=== PATIENT | male | born 1990 | race African-American/Black ===

== ENCOUNTER 2017-02-28 17:26 | Emergency (ER) | payer BC ==
--- NOTE | 2017-02-28 18:08 | ED.PDOC ---
History of Present Illness - General Time Seen by Provider: 02/28/17 17:52 Source: patient, family Exam Limitations: no limitations - History of Present Illness Initial Comments: the patient presents with a multitude of progressive symptoms. The patient has had intermittent bloody stools for the last year. He has had bilateral flank pain for the last month. He has been breaking out in sweatsintermittently for the last few months. He is feeling tingling in his legs but no loss of sensation or muscle strength. Mild stomach cramping. He is having symmetrical point pain at his elbows and his knees. he thinks he has lost 5 pounds. He has not found any ticks on himself. No significant family history of genetic disorders. No rashes. No oral lesions. No family history of prostate or testicular cancer though the patient has had significant urinary hesitancy for quite a while. No hair loss. No palpitations. No syncope or near syncope. No focal neurological changes otherwise. Timing/Duration: getting worse, changing over time Severity: moderate Improving Factors: nothing Worsening Factors: movement Associated Symptoms: diaphoresis, loss of appetite, malaise, shortness of breath Allergies/Adverse Reactions: Allergies NO KNOWN ALLERGY Allergy (Verified 02/28/17 18:16) Home Medications: Ambulatory Orders Doxycycline Hyclate 100 mg PO BID #20 cap 02/28/17 Famotidine 20 mg PO BID #60 tab 02/28/17 predniSONE [Prednisone] 20 mg PO DAILY #5 tab 02/28/17 Review of Systems - Review of Systems Constitutional: States: diaphoresis, malaise EENTM: States: no symptoms reported Respiratory: States: short of breath Cardiology: States: no symptoms reported Gastrointestinal/Abdominal: States: nausea, other - blood in his stools Genitourinary: States: other - hesitancy Musculoskeletal: States: back pain, joint pain, muscle pain Skin: States: no symptoms reported Neurological: States: anxiety, tingling Endocrine: States: excessive sweating All other Systems: No Change from Baseline Family Medical History - Family History Father Family History: Unknown Living Status: Unknown Physical Exam - Physical Exam General Appearance: Alert, Anxious, No apparent distress Eye Exam: bilateral normal Ears, Nose, Throat: hearing grossly normal, normal ENT inspection, normal pharynx Neck: non-tender, full range of motion, supple Respiratory: chest non-tender, lungs clear, normal breath sounds, no respiratory distress, no accessory muscle use Cardiovascular/Chest: normal peripheral pulses, no edema, tachycardia - ild sinus tachycardia. Significant precordial heave. Peripheral Pulses: radial,right: 2+, radial,left: 2+, dorsalis pedis,right: 2+, dorsalis pedis,left: 2+, posterior tibialis,right: 2+, posterior tibialis,left: 2+ Gastrointestinal/Abdominal: non tender, soft Back Exam: no vertebral tenderness, CVA tenderness (L) - mild Extremity: normal range of motion, non-tender, normal inspection, no pedal edema , no calf tenderness, normal capillary refill Neurologic: roadmaster II-XII nml as tested, no motor/sensory deficits, alert, oriented x 3 DTR: 3+: Biceps, left, Biceps, right, Patellar, left, Patellar, right Skin Exam: diaphoresis Progress - Progress Progress: 02/28/17 20:18 the patient is a 26-year-old male presenting to the emergency room secondary to numerous symptoms progressive over the last year to month. Source of symptoms is still uncertain at this time. It is possible patient may simply have a viral syndrome that is peaking at this time. The patient has had significant lab work done here today does not show any definitive source. He does have a mildly elevated white blood cell count without a significant left shift. At this point time I cannot say that the patient does not have any autoimmune disease. The patient does need to be set up for endoscopy for his episodes of gastrointestinal bleeding. I can also at this time not rule out an occult bacterial infection. For these reasons the patient is going to receive a broad- spectrum approach with a trial of several medications. The patient needs to shredder picker Centrum Silver and take 1 tablet daily for the next 3 months. He needs to shredder picker Pepcid and take 20 mg twice daily for the next month. He will be written for doxycycline 100 mg twice daily with food for the next 10 days. He is also going to be written for low-dose prednisone at 20 mg daily for 5 days. He needs to pay attention how these medications are making him feel. Additionally he does need to pay attention if he is having any stomach upset with any certain food groups. ER warnings were given for any acute worsening. Certainly if symptoms fail to improve additional lab work and possibly imaging may be required and possibly a nerve conduction test. - Results/Orders Results/Orders: Laboratory Tests 02/28/17 02/28/17 02/28/17 18:15 18:15 18:15 WBC 13.6 H RBC 5.13 Hgb 15.6 Hct 45.4 MCV 88.4 MCH 30.3 MCHC 34.3 RDW 12.1 Plt Count 186 MPV 7.6 Absolute Neuts (auto) 8.40 H Absolute Lymphs (auto) 3.80 H Absolute Monos (auto) 1.20 H Absolute Eos (auto) 0.10 Absolute Basos (auto) 0.10 Neutrophils % 62.1 Lymphocytes % 27.6 Monocytes % 9.0 Eosinophils % 0.8 L Basophils % 0.5 ESR PT 11.7 INR 1.040 PTT (SP) 27.4 D-Dimer, Quantitative < 200 Sodium 139 Potassium 3.4 L Chloride 105 Carbon Dioxide 23 Anion Gap 14.4 BUN 17 Creatinine 1.02 BUN/Creatinine Ratio 16.7 Random Glucose 115 H Serum Osmolality 280.0 Lactic Acid Calcium 9.8 Magnesium 1.9 Total Bilirubin 0.7 AST 26 ALT 32 Alkaline Phosphatase 98 LD Total Creatine Kinase 181 H CK-MB (CK-2) 1.8 CK-MB (CK-2) % Not Reportable Troponin I < 0.02 C-Reactive Protein B-Natriuretic Peptide 5.6 Serum Total Protein 8.2 Albumin 5.2 Globulin 3.0 Albumin/Globulin Ratio 1.7 Amylase 98 Lipase 29 Total PSA TSH 1.05 Urine Color Urine Appearance Urine pH Ur Specific [place] Urine Protein Urine Glucose (UA) Urine Ketones Urine Blood Urine Nitrite Urine Bilirubin Urine Urobilinogen Ur Leukocyte Esterase Urine RBC Urine WBC Ur Epithelial Cells Amorphous Sediment Urine Bacteria Urine Mucus Urine Opiates Screen Urine Barbiturates Ur Phencyclidine Scrn U Amphetamin/Meth Scrn U Benzodiazepines Scrn U Cocaine Metab Screen U Cannabinoids Screen Monoscreen 02/28/17 02/28/17 02/28/17 18:15 18:15 18:15 WBC RBC Hgb Hct MCV MCH MCHC RDW Plt Count MPV Absolute Neuts (auto) Absolute Lymphs (auto) Absolute Monos (auto) Absolute Eos (auto) Absolute Basos (auto) Neutrophils % Lymphocytes % Monocytes % Eosinophils % Basophils % ESR 4 PT Cancelled INR Cancelled PTT (SP) D-Dimer, Quantitative Sodium Potassium Chloride Carbon Dioxide Anion Gap BUN Creatinine BUN/Creatinine Ratio Random Glucose Serum Osmolality Lactic Acid Calcium Magnesium Total Bilirubin AST ALT Alkaline Phosphatase LD Total 144 Creatine Kinase CK-MB (CK-2) CK-MB (CK-2) % Troponin I C-Reactive Protein < 0.5 B-Natriuretic Peptide Serum Total Protein Albumin Globulin Albumin/Globulin Ratio Amylase Lipase Total PSA TSH Urine Color Urine Appearance Urine pH Ur Specific [place] Urine Protein Urine Glucose (UA) Urine Ketones Urine Blood Urine Nitrite Urine Bilirubin Urine Urobilinogen Ur Leukocyte Esterase Urine RBC Urine WBC Ur Epithelial Cells Amorphous Sediment Urine Bacteria Urine Mucus Urine Opiates Screen Urine Barbiturates Ur Phencyclidine Scrn U Amphetamin/Meth Scrn U Benzodiazepines Scrn U Cocaine Metab Screen U Cannabinoids Screen Monoscreen 02/28/17 02/28/17 02/28/17 18:15 18:15 18:15 WBC RBC Hgb Hct MCV MCH MCHC RDW Plt Count MPV Absolute Neuts (auto) Absolute Lymphs (auto) Absolute Monos (auto) Absolute Eos (auto) Absolute Basos (auto) Neutrophils % Lymphocytes % Monocytes % Eosinophils % Basophils % ESR PT INR PTT (SP) D-Dimer, Quantitative Sodium Potassium Chloride Carbon Dioxide Anion Gap BUN Creatinine BUN/Creatinine Ratio Random Glucose Serum Osmolality Lactic Acid 1.4 Calcium Magnesium Total Bilirubin AST ALT Alkaline Phosphatase LD Total Creatine Kinase CK-MB (CK-2) CK-MB (CK-2) % Troponin I C-Reactive Protein B-Natriuretic Peptide Serum Total Protein Albumin Globulin Albumin/Globulin Ratio Amylase Lipase Total PSA Cancelled TSH Urine Color Urine Appearance Urine pH Ur Specific [place] Urine Protein Urine Glucose (UA) Urine Ketones Urine Blood Urine Nitrite Urine Bilirubin Urine Urobilinogen Ur Leukocyte Esterase Urine RBC Urine WBC Ur Epithelial Cells Amorphous Sediment Urine Bacteria Urine Mucus Urine Opiates Screen Negative Urine Barbiturates Negative Ur Phencyclidine Scrn Negative U Amphetamin/Meth Scrn Negative U Benzodiazepines Scrn Negative U Cocaine Metab Screen Negative U Cannabinoids Screen Positive H Monoscreen 02/28/17 02/28/17 02/28/17 18:15 18:15 18:20 WBC RBC Hgb Hct MCV MCH MCHC RDW Plt Count MPV Absolute Neuts (auto) Absolute Lymphs (auto) Absolute Monos (auto) Absolute Eos (auto) Absolute Basos (auto) Neutrophils % Lymphocytes % Monocytes % Eosinophils % Basophils % ESR PT INR PTT (SP) D-Dimer, Quantitative Sodium Potassium Chloride Carbon Dioxide Anion Gap BUN Creatinine BUN/Creatinine Ratio Random Glucose Serum Osmolality Lactic Acid Calcium Magnesium Total Bilirubin AST ALT Alkaline Phosphatase LD Total Creatine Kinase CK-MB (CK-2) CK-MB (CK-2) % Troponin I C-Reactive Protein B-Natriuretic Peptide Serum Total Protein Albumin Globulin Albumin/Globulin Ratio Amylase Lipase Total PSA 1.68 TSH Urine Color Yellow Urine Appearance Sl cloudy Urine pH 7.0 Ur Specific [place] 1.025 Urine Protein 30 Urine Glucose (UA) Negative Urine Ketones Negative Urine Blood Negative Urine Nitrite Negative Urine Bilirubin Negative Urine Urobilinogen 1.0 Ur Leukocyte Esterase Negative Urine RBC 0 Urine WBC 1-3 Ur Epithelial Cells 0-1 Amorphous Sediment 3+ Urine Bacteria Rare Urine Mucus Moderate Urine Opiates Screen Urine Barbiturates Ur Phencyclidine Scrn U Amphetamin/Meth Scrn U Benzodiazepines Scrn U Cocaine Metab Screen U Cannabinoids Screen Monoscreen Negative Chest x-rays and x-ray of the lumbar spine showed no acute pathology. Departure - Departure Clinical Impression: Myalgia, Gastrointestinal bleeding, lower Disposition: Discharge to Home or Self Care Condition: Fair Instructions: DI for Gastrointestinal Bleeding Diet: bland diet Activity: increase activity as tolerated Prescriptions: Doxycycline Hyclate 100 mg PO BID #20 cap Famotidine 20 mg PO BID #60 tab predniSONE [Prednisone] 20 mg PO DAILY #5 tab Home Medications: Ambulatory Orders Doxycycline Hyclate 100 mg PO BID #20 cap 02/28/17 Famotidine 20 mg PO BID #60 tab 02/28/17 predniSONE [Prednisone] 20 mg PO DAILY #5 tab 02/28/17 Additional Instructions: the patient is a 26-year-old male presenting to the emergency room secondary to numerous symptoms progressive over the last year to month. Source of symptoms is still uncertain at this time. It is possible patient may simply have a viral syndrome that is peaking at this time. The patient has had significant lab work done here today does not show any definitive source. He does have a mildly elevated white blood cell count without a significant left shift. At this point time I cannot say that the patient does not have any autoimmune disease. The patient does need to be set up for endoscopy for his episodes of gastrointestinal bleeding. I can also at this time not rule out an occult bacterial infection. For these reasons the patient is going to receive a broad- spectrum approach with a trial of several medications. The patient needs to shredder picker Centrum Silver and take 1 tablet daily for the next 3 months. He needs to shredder picker Pepcid and take 20 mg twice daily for the next month. He will be written for doxycycline 100 mg twice daily with food for the next 10 days. He is also going to be written for low-dose prednisone at 20 mg daily for 5 days. He needs to pay attention how these medications are making him feel. Additionally he does need to pay attention if he is having any stomach upset with any certain food groups. ER warnings were given for any acute worsening. Certainly if symptoms fail to improve additional lab work and possibly imaging may be required and possibly a nerve conduction test.
--- NOTE | 2017-02-28 18:36 | RAD ---
EXAM DESCRIPTION: Chest,2 Views CLINICAL HISTORY: 26 years Male diaphoresis, sob COMPARISON: None. FINDINGS: The cardiomediastinal silhouette appears unremarkable. No consolidating infiltrates or pleural effusions. No pneumothorax. IMPRESSION: No acute abnormality is identified. Electronically signed by: Surekha Bolaños 02/28/2017 6:35 PM CDT
--- NOTE | 2017-02-28 18:37 | RAD ---
EXAM DESCRIPTION: Lumbar Spine 3 Views CLINICAL HISTORY: 26 years ,Male diaphoresis, sob, back pain, blood in stool COMPARISON: None. TECHNIQUE: FINDINGS: Vertebral body alignment is unremarkable. No acute fractures are identified. Narrowing of the L5-S1 disc interspace. Straightening of the normal lordosis. Pedicles appear intact. IMPRESSION: No acute fracture is identified. Mild degenerative changes at L5-S1 Electronically signed by: Surekha Bolaños 02/28/2017 6:36 PM CDT
[2017-02-28 18:52] VITALS: O2SAT 100
[2017-02-28] MEDS ORDERED: predniSONE 20 MG TAB PO ONE (20:17)
[2017-02-28] MEDS ORDERED: DOXYCYCLINE HYCLATE CAP 100 MG CAP PO ONE (20:17)
[2017-02-28 20:56] VITALS: BP 130/80; TEMP 98.4
== END 2017-02-28 20:56 | disposition home or self-care (01) ==
LOC: ER 17:26
DX: K92.2 Gastrointestinal hemorrhage, unspecified (principal); M79.1 Myalgia; R20.2 Paresthesia of skin
CPT/HCPCS: 36415; 71020; 72100; 80053; 80307; 81001; 82150; 82550; 82553; 83605; 83615; 83690; 83735; 83880; 84153; 84443; 84484; 85025; 85379; 85610; 85651; 85730; 86140; 86403; 87040; J7512